=== PATIENT | female | born 1955 | race Caucasian/White ===

== ENCOUNTER → 2017-12-01 | Outpatient (CLI) | payer OTHER | LOC: RAD 08:21 | DX: N63.12 Unspecified lump in the right breast, upper inner quadrant (principal); N63.20 Unspecified lump in the left breast, unspecified quadrant; R92.1 Mammographic calcification found on diagnostic imaging of breast ==

== ENCOUNTER → 2017-12-08 | Outpatient (CLI) | payer OTHER ==
--- NOTE | ~2017-12-08 | PATH ---
[facility] [address] [place] [address] PATHOLOGY RPT PROCEDURE Name: BOB SALDANA Room #: REG [facility] Chivo.#: [id number] Admission: 12/08/17 Date of : 59 Discharge: Report #: [id number] Path Case #: [id number] [facility] Accession Number: [id number] . 01 Material submitted: . RT BREAST MASS, 12:00 . 01 Clinical history: . Right breast mass at 12:00 . 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 See comment. (SHA:ishaan; 12/11/2017) QMS/12/11/2017 . 02 Comment: This case is also reviewed by Dr. Meghana Carter. . Dr. Fred Garibay was informed on 12/11/2017 at 3:00pm . . BIOPSY SYNOPTIC . Site: Right breast at 12:00 . Measurement: 1.5 cm in greatest dimension . Type of Tumor: Infiltrating ductal carcinoma with mucinous features . Tubules: 3 Nuclei: 2 Mitoses: 1 Overall Grade: 2 DCIS not present Lymphatic invasion not present Predictive breast markers will be ordered on block A1, and once those are available, an additional report will follow. . (SHA:nyu langone [facility]; 12/11/2017) . 02 Electronically signed: . Caden De Leon MD, Pathologist NPI- [id number] . 01 Gross description: . [address] [address] PATHOLOGY RPT PROCEDURE Name: BOB SALDANA [id number]: 12/08/17 Date of : 59 Discharge: Report #: [id number] Path Case #: [id number] The specimen is received in formalin, labeled "Bob Saldana, right breast 12:00", are several valentino-white fibrofatty cores measuring 2.0 x 1 2.0 x 1.3 x 1.0 cm in aggregate. The specimen is entirely submitted in A1-A3. . Specimen excised at: 0930 on 12/08/17, placed in formalin at: 0932 on 12/08/17, formalin exposure: Approximately 15 hours. (SWS; 12/08/2017) SHS/SHS . 02 Pathologist provided ICD-10: C50.911 . 02 CPT . 618985 Specimen Comment: A courtesy copy of this report has been sent to Specimen Comment: [phone]. Specimen Comment: Report sent to Performed at: [address], [place], [place] [id number] MD Avni Craig MD Phone: [phone] Performed at: [address] [id number] MD Orquidea Fleming MD Phone: [phone]
== END | disposition home or self-care (01) ==
LOC: ULTRA 00:21
DX: C50.911 Malignant neoplasm of unspecified site of right female breast (principal)

== ENCOUNTER → 2017-12-19 | Outpatient (CLI) | payer OTHER ==
[2017-12-19 11:04] LABS: CREATININE 0.8 mg/dL (0.6-1.0)
== END ==
LOC: MRI 09:56
PROVIDERS: Specialist
DX: C50.111 Malignant neoplasm of central portion of right female breast (principal)

== ENCOUNTER → 2017-12-29 | Outpatient (CLI) | payer OTHER ==
--- NOTE | ~2017-12-29 | PATH ---
[facility] [place] [address] PATHOLOGY RPT PROCEDURE Name: BOB SALDANA Room #: REG [facility] Chivo.#: [id number] Admission: 12/29/17 Date of : 59 Discharge: Report #: [id number] Path Case #: [id number] [facility] Accession Number: [id number] . 01 Material submitted: . PART A: RIGHT AXILLARY INFERIOR LYMPH NODE PART B: RIGHT AXILLARY SUPERIOR LYMPH NODE . 01 Clinical history: . Right axillary node, right breast cancer, recent diagnosis . 02 Diagnosis: A. Lymph node, right axillary inferior node, ultrasound-guided needle core biopsy: - Reactive lymph node parenchyma. - No malignant epithelial cells identified on immunohistochemical stain. . B. Lymph node, right axillary superior node, ultrasound-guided needle core biopsy: - Minute (1 mm) sample of lymph node parenchyma with reactive changes. - No malignant epithelial cells identified on immunohistochemical staining. . (IUV:mml; 01/02/18) QL/01/02/2018 . 02 Comment: AE1/AE3 immunohistochemical stain is performed on block A1 and B1. There are no definite malignant epithelial cells identified on the immunohistochemical stain. . (IUV:mml; 01/02/18) . 02 Electronically signed: . Orquidea Fleming MD, Pathologist NPI- [id number] . 01 Gross description: . A. Received in formalin labeled "Bob Saldana, right axilla inferior lymph node BX 1," are multiple fragments of needle cores of valentino soft tissue measuring 1.1 x 0.2 x 0.1 cm in aggregate dimensions. The specimen is filtered and entirely submitted in cassette A1. . B. Received in formalin labeled "Bob Saldana, right axilla superior lymph node BX area 2," are multiple fragments of needle cores of valentino soft tissue measuring 0.5 x 0.2 x 0.1 cm in aggregate dimensions. The specimen is filtered and entirely submitted in cassette B1. (TSD; 12/29/2017) [address] [address] PATHOLOGY RPT PROCEDURE Name: BOB SALDANA K Room #: REG CHERY Wiley#: [id number] Admission: 12/29/17 Date of : 59 Discharge: Report #: [id number] Path Case #: [id number] TOB/TOB . 02 Pathologist provided ICD-10: R59.0 . 02 CPT . 067158, 629359, [id number] Specimen Comment: A courtesy copy of this report has been sent to Specimen Comment: [phone]. Specimen Comment: Report sent to Performed at: [address], [place] [id number] MD Avni Craig MD Phone: [phone] Performed at: [address] [id number] MD Orquidea Fleming MD Phone: [phone]
== END | disposition home or self-care (01) ==
LOC: ULTRA 10:16
DX: R59.0 Localized enlarged lymph nodes (principal); C50.919 Malignant neoplasm of unspecified site of unspecified female breast; Z88.0 Allergy status to penicillin

== ENCOUNTER 2018-01-15 07:03 | Day surgery (SDC) | payer OTHER ==
[2018-01-09 15:43] LABS: HEMATOCRIT 43.3 % (37.0-47.0); HEMOGLOBIN 15.6 gm/dL (12.0-15.0); MCH 34.8 pg (26.0-34.0); MCHC 36.1 g/dL (28.0-37.0); MCV 96.4 fL (80.0-100.0); RBC 4.5 mil/uL (4.20-5.00); RDW 12.6 % (10.5-14.5); WBC 7.4 thou/uL (4.0-11.0)
[2018-01-09 15:58] LABS: ALBUMIN 3.9 g/dL (3.4-5.0); CALCIUM 9.4 mg/dL (8.5-10.1); CREATININE 0.7 mg/dL (0.6-1.0); POTASSIUM 3.2 mmol/L (3.5-5.1); TOTAL BILIRUBIN 0.5 mg/dL (<0.1-1.0); TOTAL PROTEIN 7.7 g/dL (6.4-8.2)
[~2018-01-15] VITALS: Ht 154.9 cm; Wt 66.2 kg
--- NOTE | ~2018-01-15 | O ---
[facility] [place] [address] OPERATIVE REPORT Name: BOB ACOSTA Room #: DEP [facility].#: [id number] Admission: 01/15/18 Attend Phys: Jesús Edge MD Discharge: 01/15/18 Date of : 59 Report #: [id number] THIS REPORT FOR: //name// CC: Minor BEE DATE OF SERVICE: 01/15/2018 PREOPERATIVE DIAGNOSIS: Carcinoma, right breast. POSTOPERATIVE DIAGNOSIS: Carcinoma, right breast, final pathology pending. OPERATION: 1. Lymphatic mapping. 2. Right total mastectomy with sentinel lymph node resection x 5. SURGEON: Jesús Edge MD DRAMATIC ART TEACHER: Medical student, MS Melvin3. ANESTHESIA: General. DESCRIPTION OF PROCEDURE: The patient was taken to Nuclear Medicine and the radiologist injected technetium sulfur colloid into the right breast as per protocol. The radiologist found a hot spot in the right axilla, which was marked. The patient was brought to the operating room for a general anesthetic. Lymphatic mapping was performed using the gamma probe and we confirmed the presence of a right axillary hot spot with a 10-second count of 1364. Next, 5 mL of Lymphazurin blue dye was injected into the right breast as per protocol using sterile technique with alcohol prep. Next, the right breast and right axilla were widely prepped with ChloraPrep solution. Sterile drapes were applied. The patient had a large tumor in the central right breast; however, the skin did not look grossly involved. Nevertheless, I wanted to remove all of the skin over the mass just to be on the safe side. A transverse slightly oblique elliptical incision was made in order to fully encompass the skin over the tumor including the nipple areolar complex as well. The skin flaps were developed using electrocautery. The breast was dissected off of the chest wall from medial to lateral in order to improve exposure in the axilla. The axilla was entered with care being taken to avoid injury to the neurovascular structures. We found five sentinel nodes, which were each excised, controlling the blood and lymphatic supply using Harmonic scalpel. The sentinel node #1 had a 10-second count of 1215, it was blue. [place] node #2 had a 10-second count of 127, it was blue. [place] node #3 had a 10-second count of 891, it was [address] [address] OPERATIVE REPORT Name: DAVEBOB Room #: DEP [facility]#: [id number] Admission: 01/15/18 Attend Phys: Jesús Edge MD Discharge: 01/15/18 Date of : 59 Report #: [id number]. [place] node #4 had a 10-second count of 626, it was blue. [place] node #5 had a 10-second count of 23 and it was also blue. All five sentinel nodes were submitted to pathology separately. The mastectomy was completed, removing the entire breast together with the pectoralis fascia and the tail of Salas, which was marked for orientation purposes. The specimen was given directly to the pathologist. The post-resection bed count was 16, which was well below 10% of the highest node. Palpation within the axilla revealed no other suspicious nodes nor were there any other blue or radioactive nodes to be found. Hemostasis was carefully obtained. The wound was irrigated with saline. The sponge, instrument and needle counts were reported as correct. The wound was irrigated with saline. A 19-Latvian round suction catheter was left under the skin flaps and it was brought out through a separate stab wound. The incision was closed in layers using interrupted 3-0 Vicryl for the dermis and running 4-0 PDS for the subcuticular layer. Sterile dressings were applied and the patient was taken to recovery in satisfactory condition. Estimated blood loss was less than 20 mL. <ELECTRONICALLY SIGNED> By: Jesús Edge MD 01/31/18 1109 1302 1318 Jesús Edge MD /nt
--- NOTE | ~2018-01-15 | PATH ---
Formerly [facility] [address] [place] [address] PATHOLOGY RPT PROCEDURE Name: KARMEN SALDANA Room #: DEP [facility].#: [id number] Admission: 01/15/18 Date of : 59 Discharge: 01/15/18 Report #: [id number] Path Case #: [id number] [facility] Accession Number: [id number] . 01 Material submitted: . PART A: RIGHT AXILLARY SENTINEL LYMPH NODE #1 PART B: RIGHT AXILLARY SENTINEL LYMPH NODE #2 PART C: RIGHT AXILLARY SENTINEL LYMPH NODE #3 PART D: RIGHT AXILLARY SENTINEL LYMPH NODE #4 PART E: RIGHT AXILLARY SENTINEL LYMPH NODE #5 PART F: RIGHT MASTECTOMY LONG SUTURE SELF TAIL OF STILES . 01 Clinical history: . Carcinoma right breast . 02 Diagnosis: A. Lymph node (1), right axillary sentinel lymph node #1, biopsy: - MULTIPLE CLUSTERS OF TUMOR CELLS MEASURING 1 MM EACH WITHIN LYMPH NODE PARENCHYMA AND SUBCAPSULAR SINUS MEASURING APPROXIMATELY 5 MM WITH FOCAL EXTRACAPSULAR EXTENSION (pN1a). . B. Lymph node (1), right axillary sentinel lymph node #2, biopsy: - Reactive lymph node without isolated tumor cells or micrometastases or macrometastases (0/1). . C. Lymph nodes (2), right axillary sentinel lymph node #3, biopsy: - Reactive lymph nodes without isolated tumor cells or micrometastases or macrometastases (0/2), . D. Lymph node (1), right axillary sentinel lymph node #4, biopsy: - Reactive lymph node without isolated tumor cells or micrometastases or macrometastases (0/1). . E. Lymph node (1), right axillary sentinel lymph node #5, biopsy: - Reactive lymph node without isolated tumor cells or micrometastases or macrometastases (0/1). . F. Breast, right, mastectomy: - INVASIVE DUCTAL CARCINOMA WITH EXTENSIVE MUCIN PRODUCTION / MUCINOUS FEATURES, MARIELLE GRADE II. - TUMOR MEASURES 5.7 CM IN GREATEST DIMENSION. - LYMPHOVASCULAR SPACE INVASION PRESENT. - Margins of resection free of malignancy; closest deep / posterior margin is 0.8 cm away. - Skin and nipple without any evidence of malignancy. . (IUV:mml; 01/17/18) . [address] [address] PATHOLOGY RPT PROCEDURE Name: KARMEN SALDANA Room #: DEP [facility] Chivo.#: [id number] Admission: 01/15/18 Date of : 59 Discharge: 01/15/18 Report #: [id number] Path Case #: [id number] . . Surgical Pathology Cancer Case Summary . Protocol posting date: February 2017 . INVASIVE CARCINOMA OF THE BREAST: . . Specimen Identification Procedure ___ Total mastectomy (including nipple-sparing and skin-sparing mastectomy) . Specimen Laterality ___ Right . Tumor Site: Invasive Carcinoma ___ Position: 12:00 clock . Tumor Size ___ 5.7 cm . Histologic Type ___ Invasive ductal carcinoma with mucinous features and extensive mucin production . Histologic Grade (Marielle Histologic Score) ___ [place] Grade II/III Glandular (Acinar)/Tubular Differentiation ___ Score 3 (<10% of tumor area forming glandular/tubular structures) Nuclear Pleomorphism ___ Score 2 (cells larger than normal with open vesicular nuclei, visible nucleoli, and moderate variability in both size and shape) Mitotic Rate ___ Score 1 (=3 mitoses per mm2) . Tumor Focality ___ Single focus . Ductal Carcinoma In Situ (DCIS) ___ Not identified . Tumor Extension Skin ___ None . [address] [address] PATHOLOGY RPT PROCEDURE Name: KARMEN SALDANA Room #: DEP [facility] Saurabh#: [id number] Admission: 01/15/18 Date of : 59 Discharge: 01/15/18 Report #: [id number] Path Case #: [id number] ___ None . . Margins . Invasive Carcinoma Margins ___ Uninvolved by invasive carcinoma Distance from closest margin (millimeters): 8 mm Specify closest margin: posterior/deep . . Regional Lymph Nodes . ___ Involved by tumor cells Number of Lymph Nodes Examined: 6 Number of [place] Nodes Examined: 6 Number of Lymph Nodes with Macrometastases (>2 mm): 1 Size of Largest Metastatic Deposit: five separate tumor foci measuring 1mm each measuring approximately total of at least 5 mm . Extranodal Extension: Identified, measuring 1 mm approximately . Treatment Effect ___ No known presurgical therapy . Lymphovascular Invasion ___ Present . Dermal Lymphovascular Invasion ___ Not identified . Pathologic Stage Classification (pTNM, AJCC 8th Edition) Note: Reporting of pT, pN, and (when applicable) pM categories is based on information available to the pathologist at the time the report is issued. . . Primary Tumor (Invasive Carcinoma) (pT) ___ pT3: Tumor >50 mm in greatest dimension . Category (pN) ___ pN1a: Metastases in 1 to 3 axillary lymph nodes, at least 1 metastases larger than 2. 0 mm. . Distant Metastasis (pM) (required only if confirmed pathologically in this case) ___ pMX: Unknown . (IUV:mml; 01/17/18) [address] [address] PATHOLOGY RPT PROCEDURE Name: KARMEN SALDANA [id number] Admission: 01/15/18 Date of : 59 Discharge: 01/15/18 Report #: [id number] Path Case #: [id number] QL/01/18/2018 . 02 Comment: AE1/AE3 immunohistochemical stain is performed on blocks A1, A2, B1, C1, D1, and E1. Metastatic foci are identified scattered throughout the subcapsular sinuses and within the lymph node parenchyma in A2 measuring approximately 1 mm in greatest dimension in at least 5 separate foci. Focal extracapsular extension is identified within this node as well. The remainder of the blocks are negative for isolated tumor cells, micrometastases or macrometastases. Block A2 was co-reviewed with Dr. Radha Medley who concurs with my diagnosis (including the immunohistochemical stain). . The findings of this case telephoned to Dr. Jesús Edge's nurse Ms. Escobedo at 11:30 am on 01/18/18. . (IUV:mml; 01/17/18) . 02 Addendum: . Special studies report received from [facility]. Oncotype DX Breast Cancer Assay, [address] [place] [address], on case [id number], labeled with their number [id number], dated 02/02/2018. . Oncotype DX Breast Recurrence Score Report Micromets and Node Positive (1-3)* . Recurrence Score Result (RS) 19 . Distant Recurrent Risk at 9 Years With AI or TAN Alone 16% TransATAC . Absolute Chemotherapy Benefit RS 18-30 Approximately 1% SWOG 8814 . Real World Evidence of SEER Registry Outcomes in Patients Treated Without Chemotherapy Based on RS Results . RS 0-10 RS 11-15 RS 16-20 RS 21-25 RS 26-100 # of Patients [phone] [address] PATHOLOGY RPT PROCEDURE Name: KARMEN SALDANA Room #: DEP [facility]#: [id number] Admission: 01/15/18 Date of : 59 Discharge: 01/15/18 Report #: [id number] Path Case #: [id number] BCSS at 9 Years 98.2% 99.0% 96.7% 93.1% 84.2% BCSS = Breast cancer-specific survival . Quantitative Single-Gene Scores 12.0 ER Positive <3.2 VT Negative 9.5 HER2 Negative . The Oncotype DX Breast Recurrence Score test uses RT-PCR to determine the expression of a panel of 21 genes (16 cancer-related, 5 reference) in tumor tissue. . The Oncotype DX Breast Recurrence Score test uses RT-PCR to provide prognostic and predictive information to guide the systemic treatment decisions with hormonal therapy and/or chemotherapy for patients diagnosed with ER+, HER2- invasive breast cancer. Decisions on treatment should also be based on independent medical judgment of the treating physician taking into consideration all available information concerning the patient's medical condition, including other pathological tests, in accordance with your communities" standard of care. . *Results in this report are based on studies including both micrometastases and 1-3 positive nodes. Advances in histopathological techniques and changes in staging criteria have resulted in an increase in the number of patients diagnosed with lymph node micrometastases (0.2 mm - 2.0 mm). Previous study results varied regarding their clinical significance. BCSS in SEER for patients with RS 0-17 treated without chemotherapy are similarly favorable for patients with negative nodes, micrometastases, and 1-3 positive nodes. . The Recurrence Score Result (RS), which ranges from 0-100, is calculated from the quantitative RT-PCR analysis of the 21 genes. . The Distanct Recurrence Risk at 9 Years (Prognosis), in patients treated with tamoxifen or arimidex alone, is provided by the TransATAC trial. Risk is for individual RS results. The 95% confidence intervals for distant recurrence at 9 years are +/-3 to +/-6% for RS 0-22, and range from +/-6 to +/-12% as RS increases from RS 23-50. The TransATAC trial enrolled 1,231 patients and 243 patients had 1-3 positive nodes, including micrometastases. . The Absolute Benefit of Chemotherapy is provided by the SWOG 8814 trial. Results for reduction in distant recurrence of at 5 years are for the RS groups 0-17, 18-30, and 31-100. The SWOG 8814 trial enrolled 367 patients with N+ (including micrometastases), ER+ breast cancer who were randomized to tamoxifen alone or tamoxifen plus CAF (anthracycline-containing) chemotherapy. The benefit of chemotherapy increased with an increase in the RS result. [address] [address] PATHOLOGY RPT PROCEDURE Name: STEPHENSERGEYFLORKARMEN Room #: DEP [facility] Patricia.Solange#: [id number] Admission: 01/15/18 Date of : 59 Discharge: 01/15/18 Report #: [id number] Path Case #: [id number] The upper bound of the 95% confidence interval for RS 18-30 was 7% absolute chemotherapy benefit. . Real World Evidence of SEER Registry Outcomes in Patients Treated Without Chemotherapy Based on RS Results [facility] had 6,814 patients with HR+, HER2-, node positive (1-3 positive nodes or micrometastases) breast cancer, diagnosed between February 2003 and January 2014, who were reported to have no or unknown chemotherapy use. Two additional prospective studies also demonstrated favorable outcomes with endocrine therapy alone for patients with 1-3 positive nodes and RS 0-11 (PlanB) or RS 0-17 ([place]). . Quantitative Single-Gene Scores for principal quality engineer. The Oncotype DX test uses quantitative RT-PCR to determine the RNA expression of ER, VT, and HER2, using the published validated cut-offs. The standard deviations of single-gene results are less than 0.5 units. The RT-PCR single-gene results may differ from ER, VT, or HER2 results reported using other methods or reported by other laboratories. . . . References: 1. Marcel et al. Breast Cancer Res Treat. 2017.; Cytoguide (data on file). 2. Hazel et al. J Clin Oncol. 2010. 3. Kalyan et al. Lancet Oncol. 2010.; Cytoguide (data on file). 4. Jesusita et al. Breast Cancer Res Treat. 2017. 5. Blanco et al. npj Breast Cancer 2017. 6. Eduardo et al. J Clin Oncol. 2008.; Annie et al. J Clin Oncol. 2010. . . Director Of Corporate Marketing: Modesto Lee MD . A complete copy of the report is on file. . Professional services performed by [facility]. [address] [place] [address]. Technical services performed by [facility]. [address] [place] [address]. . (AMJ 02/05/2018) . AZJ/02/05/2018 Addendum Electronically Signed by Orquidea Fleming MD, Pathologist . 02 Electronically signed: . Orquidea Fleming MD, Pathologist NPI- [id number] . 01 Gross description: . A. The specimen is received in formalin, labeled "Karmen Saldana, [place] [address] PATHOLOGY RPT PROCEDURE Name: KARMEN SALDANA Room #: DEP [facility]#: [id number] Admission: 01/15/18 Date of : 59 Discharge: 01/15/18 Report #: [id number] Path Case #: [id number] axillary sentinel lymph node #1", is an irregular yellow lobulated soft measuring 3.6 x 2.5 x 1.0 cm, within which is a valentino-brown lymph node present measuring 2.0 x 1.0 x 0.1 cm. The lymph node is serially section to reveal a valentino-daugherty cut surface with several white beads -like structures embedded. The specimen is entirely submitted in A1-A2. . B. The specimen is received in formalin, labeled "Karmen Saldana, right axillary sentinel lymph node #2", is an irregular yellow lobulated soft tissue measuring 3.0 x 2.0 x 1.4 cm, within which is valentino-brown lymph node present measuring 1.5 x 1.2 x 0.5 cm. The lymph node is serially section to reveal a valentino cut surface with a hemorrhagic focal area. The specimen is entirely submitted in B1. . C. The specimen is received in formalin, labeled "Karmen Saldana, right axillary sentinel lymph node #3", are two valentino, rubbery lymph nodes measuring 0.7 x 0.4 x 0.3 cm and 0.7 x 0.5 x 0.3 cm, each bisected and entirely submitted in C1. (One inked black) . D. The specimen is received in formalin, labeled "Karmen Saldana, right axillary sentinel lymph node #4", is an irregular fragment of yellow lobulated soft tissue measuring 1.8 x 1.6 x 0.5 cm, within which is a valentino-pink rubbery lymph node measuring 0.5 x 0.5 x 0.4 cm. The lymph node is a bisected and entirely submitted in D1. . E. The specimen is received in formalin, labeled "Karmen Saldana, right axillary sentinel lymph node #5", is an irregular fragment of yellow lobulated soft tissue measuring 1.5 x 1.2 x 0.7 cm, within which is a valentino-pink rubbery lymph node measuring 1.0 x 0.6 x 0.4 cm. The lymph node is bisected and entirely submitted in E1. . F. The specimen is received in formalin, labeled "Karmen Saldana, right mastectomy-long suture self tail of Stiels", is an oriented right modified radical mastectomy specimen weighing 489 g and measuring 20.5 x 14.0 x 5.0 cm, with an overlying valentino-white ellipse of skin measuring 13.0 5.5 cm containing a 1.8 x 1.6 cm indurated, nipple-areola complex with a 1.0 cm in diameter everted nipple and an attached tail of Stiles 5.3 x 4.7 x 1.0 cm. The posterior surface is covered with smooth fascia with no skeletal muscle present. The specimen is inked as follows: Superior anterior = blue, inferior anterior = green and deep = black. Specimen is serial sectioned from medial to lateral to reveal a demarcated, circumscribed, soft, gelatinous tumor with several hemorrhagic foci measuring 5.7 cm (medial to lateral), 5.5 cm (superior to inferior) and 4.2 cm (anterior to deep). The tumor is a surrounded by a daugherty-white indurated fibrous tissue on the lateral and inferior aspect. The mass is 1.0 cm from the nipple, 0.8 cm from the deep, 0.9 cm from the anterior superior skin, 0.3 cm from the anterior inferior skin, 4.7 cm from the superior, 1.6 cm from the inferior, greater than 2.5 cm from the medial and lateral margins. The remaining parenchyma is predominantly yellow, Formerly [facility] [address] [place] [address] PATHOLOGY RPT PROCEDURE Name: KARMEN SALDANA Room #: DEP [facility]#: [id number] Admission: 01/15/18 Date of : 59 Discharge: 01/15/18 Report #: [id number] Path Case #: [id number] soft and unremarkable. The fat to fibrous ratio is approximately 90:10. The cut surface of tail of Stiles is yellow lobulated and unremarkable. Reaming Machine Operator tissue is submitted as follows: F1-F2. Nipple to tumor F3. Tumor to deep margin F4. Tumor (medial aspect) to uninvolved parenchyma F5-F8. Tumor (medial to lateral) F9. Tumor (lateral aspect) to uninvolved parenchyma F10-F12. Fibrous tissue adjacent to tumor F13. Tumor to closest anterior inferior F14. Tumor to anterior superior skin F15. Tumor to anterior inferior skin F16. Superior margin F17. Inferior margin F18. Medial margin F19. Lateral margin F20-F21. Upper outer quadrant F22-F23. Upper inner quadrant F24-F25. Lower inner quadrant F26-F27. Lower outer quadrant F28-F29. Tail of Stiles . Specimen excised at: 1235 on 01/15/18, placed in formalin at: 1250 on 01/15/18: Formalin exposure: 34 hours and 55 minutes. (SWS; 01/16/2018) SHS/SHS . 02 Pathologist provided ICD-10: C50.911 . 02 CPT . 425861, 919664, 667790, 901987, 843093, 451524, U21161 Performed at: [address] [facility] [id number] [facility] [address], [place], [place] [id number] MD Avni Craig MD Phone: [phone] Performed at: [address] [id number] MD Orquidea Fleming MD Phone: [phone]
--- NOTE | ~2018-01-15 | EKG ---
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 : 1955 Requested By: Jesús Edge Order Number: [id number] MD: Arjun Vazquez Measurements Intervals [place] Rate: 68 P: 29 SD: 165 QRS: 4 QRSD: 98 T: 72 QT: 426 QTc: 454 Interpretive Statements Sinus rhythm Early R-wave progression Nonspecific T wave abnormality Baseline wander in lead(s) V1 No previous ECG available for comparison Electronically Signed On 01-10-2018 8:44:13 INTERMEDIATE DESIGNER by Arjun Vazquez [email or web address] <ELECTRONICALLY SIGNED> By: Arjun Vazquez MD, [facility] 01/10/18 0844 1544 1544 Arjun Vazquez MD, FACC /EPI
[~2018-01-15 07:03] MED LIST: AMITRIPTYLINE H50 M2 PO; BENTYL 10 MG CA10 M1 PO; BISOPROLOL FUMAR5 M1 PO; CLONAZEPAM 0.50.5 M1 PO; ESCITALOPRAM OX10 MG PO; HYDROCHLOROTHIA25 M2 PO; VITAMIN D1000 UNI1 PO
[2018-01-15 07:34] LABS: CALCIUM 9.2 mg/dL (8.5-10.1); CREATININE 0.8 mg/dL (0.6-1.0); POTASSIUM 4.6 mmol/L (3.5-5.1)
[2018-01-15 07:40] LABS: ALBUMIN 3.7 g/dL (3.4-5.0); TOTAL BILIRUBIN 0.3 mg/dL (<0.1-1.0); TOTAL PROTEIN 7.8 g/dL (6.4-8.2)
[2018-01-15 11:02] VITALS: BP 129/77
== END 2018-01-15 14:05 | disposition home or self-care (01) ==
LOC: OR 07:03 → TBA 07:06 → OR 08:17
PROVIDERS: Specialist
DX: C50.911 Malignant neoplasm of unspecified site of right female breast (principal); I10 Essential (primary) hypertension; K21.9 Gastro-esophageal reflux disease without esophagitis; F32.9 Major depressive disorder, single episode, unspecified; F41.9 Anxiety disorder, unspecified; F17.210 Nicotine dependence, cigarettes, uncomplicated; Z85.3 Personal history of malignant neoplasm of breast; Z98.890 Other specified postprocedural states; Z90.49 Acquired absence of other specified parts of digestive tract; Z79.899 Other long term (current) drug therapy; Z88.0 Allergy status to penicillin; Z88.6 Allergy status to analgesic agent
CPT/HCPCS: 50010; 50101; 50331; 50386; 50403; 52190; 56524; 56526; 62110; 62900; 70005

== ENCOUNTER → 2018-11-21 | Outpatient (CLI) | payer OTHER | LOC: ULTRA 08:11 → BC 08:11 | DX: C50.911 Malignant neoplasm of unspecified site of right female breast (principal); R92.2 Inconclusive mammogram; Z90.11 Acquired absence of right breast and nipple ==

== ENCOUNTER → 2019-08-16 | Outpatient (CLI) | payer OTHER | LOC: ULTRA 09:16 | PROVIDERS: ATTEND Nurse Practitioner | DX: H54.62 Unqualified visual loss, left eye, normal vision right eye (principal); H53.8 Other visual disturbances ==

== ENCOUNTER → 2019-11-08 | Outpatient (CLI) | payer OTHER | LOC: LAB 13:53 | PROVIDERS: ATTEND Nurse Practitioner | DX: Z20.828 Contact with and (suspected) exposure to other viral communicable diseases (principal) ==

== ENCOUNTER → 2019-12-11 | Outpatient (CLI) | payer OTHER | LOC: RAD 08:33 | DX: Z12.31 Encounter for screening mammogram for malignant neoplasm of breast (principal) ==

== ENCOUNTER → 2019-12-18 | Outpatient (CLI) | payer OTHER | LOC: BC 12:33 | DX: R92.1 Mammographic calcification found on diagnostic imaging of breast (principal) ==

== ENCOUNTER → 2020-04-07 | Outpatient (CLI) | payer OTHER | LOC: LAB 08:41 | PROVIDERS: ATTEND Nurse Practitioner | DX: R53.83 Other fatigue (principal); J02.9 Acute pharyngitis, unspecified; Z20.822 Contact with and (suspected) exposure to COVID-19 ==

== ENCOUNTER → 2020-05-11 | Outpatient (CLI) | payer OTHER | LOC: MRI 07:48 | PROVIDERS: ATTEND Nurse Practitioner | DX: I67.82 Cerebral ischemia (principal); Z87.820 Personal history of traumatic brain injury ==

== ENCOUNTER → 2020-06-02 | Outpatient (CLI) | payer OTHER | LOC: CAT 10:32 | PROVIDERS: ATTEND Nurse Practitioner | DX: C50.011 Malignant neoplasm of nipple and areola, right female breast (principal); R14.0 Abdominal distension (gaseous) ==